=== PATIENT | female | born 1990 | race American Indian/Alaskan Native ===

== ENCOUNTER 2017-08-23 13:00 | Outpatient (CLI) | payer MEDICAID ==
[2017-08-23 13:20] VITALS: BP 129/75
== END 2017-08-23 13:45 | disposition home or self-care (01) ==
LOC: EDBD 13:00 → TRG 13:00
PROVIDERS: ATTEND Obstetrics & Gynecology
DX: O47.02 False labor before 37 completed weeks of gestation, second trimester (principal); Z3A.21 21 weeks gestation of pregnancy
CPT/HCPCS: 59025